=== PATIENT | female | born 2000 | race Caucasian/White ===

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

== ENCOUNTER → 2021-05-03 | Outpatient (REF) | LOC: M LABSMTC 13:05 | PROVIDERS: ATTEND Pediatrics | DX: Z20.822 Contact with and (suspected) exposure to COVID-19 (principal) ==

== ENCOUNTER 2022-11-13 18:53 | Emergency (ER) | payer OTHER ==
[~2022-11-13] VITALS: Ht 165.1 cm; Wt 59.0 kg
[2022-11-13 19:49] LABS: HEMATOCRIT 42.9 % (36.0-47.0); HEMOGLOBIN 14.4 g/dl (12.0-15.5); MEAN CORPUSCULAR HEMOGLOBIN 31.5 pg (27.0-33.0); MEAN CORPUSCULAR HGB CONC 33.6 g/dl (32.0-36.5); MEAN CORPUSCULAR VOLUME 93.9 fl (80.0-96.0); PLATELET COUNT, AUTOMATED 213 10^3/uL (150-450); RED BLOOD COUNT 4.57 10^6/uL (4.00-5.40); WHITE BLOOD COUNT 5.3 10^3/uL (4.0-10.0)
[2022-11-13 20:11] LABS: RSV AMPLIFICATION NEGATIVE (NEGATIVE)
[2022-11-13 20:18] LABS: ATYPICAL LYMPH 1 % (0-5); BASOPHILS 1 % (0-1); LYMPHOCYTES 15 % (16-44); MONOCYTES 14 % (0-5); NEUTROPHILS 68 % (28-66)
[2022-11-13 20:19] LABS: PLATELET ESTIMATE NORMAL (NORMAL)
[2022-11-13 20:21] LABS: ALBUMIN 4.3 G/DL (3.2-5.2); ALKALINE PHOSPHATASE 72 U/L (46-116); ALT/SGPT 18 U/L (7.0-40); AST/SGOT 13 U/L (<34); BLOOD UREA NITROGEN 10 MG/DL (9-23); CALCIUM LEVEL 9.1 MG/DL (8.5-10.1); CARBON DIOXIDE LEVEL 23 MMOL/L (20-31); CHLORIDE LEVEL 103 MMOL/L (98-107); CREATININE FOR GFR 0.71 MG/DL (0.55-1.30); GLOMERULAR FILTRATION RATE > 60.0 (>60); GLUCOSE, FASTING 82 MG/DL (60-100); POTASSIUM SERUM 4.1 MMOL/L (3.5-5.1); SODIUM LEVEL 136 MMOL/L (136-145); TOTAL PROTEIN 7.6 G/DL (5.7-8.2)
[2022-11-13 20:26] LABS: HCG, SERUM QUALITATIVE NEGATIVE (NEGATIVE)
[2022-11-14 00:34] VITALS: BP 126/79; TEMP 100.8; O2SAT 98
[2022-11-14 03:02] LABS: MONO SCRN NEGATIVE (NEGATIVE)
[2022-11-14] MEDS ORDERED: CEPHALEXIN 500 MG CAP PO ONE (05:30)
[2022-11-14] MEDS ORDERED: CEPH500C PO (05:34)
[2022-11-14 06:41] LABS: GC DNA AMPLIFICATION NEGATIVE (NEGATIVE)
== END 2022-11-14 05:47 | disposition home or self-care (01) ==
LOC: M ED 18:53
DX: B00.89 Other herpesviral infection (principal); N89.9 Noninflammatory disorder of vagina, unspecified; J02.0 Streptococcal pharyngitis

== ENCOUNTER → 2023-06-03 | Outpatient (REF) | payer OTHER ==
[~2023-06-03] MED LIST: CEPH500C PO; VALA1TAB5 PO
== END ==
LOC: M SFHCWAGY 17:21
PROVIDERS: ATTEND Nurse Practitioner Family
DX: Z12.4 Encounter for screening for malignant neoplasm of cervix (principal)

== ENCOUNTER → 2024-06-09 | Outpatient (CLI) | payer OTHER, BC ==
[2024-06-09 19:04] LABS: HEPATITIS B SURFACE ANTIGEN NEGATIVE (NEGATIVE)
[2024-06-09 19:17] LABS: HIV 1&2 SCREEN NEGATIVE (NEGATIVE)
[2024-06-09 19:25] LABS: HEPATITIS C VIRUS ABY INDEX 0.15 INDEX (<0.8)
[2024-06-09 19:26] LABS: HEPATITIS B CORE ANTIBODY IGM NEGATIVE (NEGATIVE)
[2024-06-09 20:32] LABS: Trichomonas vaginalis (AMP) NOT DETECTED (NEGATIVE)
[2024-06-09 20:56] LABS: GC DNA AMPLIFICATION NEGATIVE (NEGATIVE)
== END ==
LOC: M PLALAB 15:24
PROVIDERS: ATTEND Nurse Practitioner Family
DX: Z11.3 Encounter for screening for infections with a predominantly sexual mode of transmission (principal)

== ENCOUNTER → 2024-11-17 | Outpatient (REF) | payer BC, OTHER ==
[2024-11-17 19:47] LABS: Trichomonas vaginalis (AMP) NOT DETECTED (NEGATIVE)
[2024-11-17 20:10] LABS: GC DNA AMPLIFICATION NEGATIVE (NEGATIVE)
== END ==
LOC: M SFHCWAGY 16:59
PROVIDERS: ATTEND Nurse Practitioner Family
DX: N73.9 Female pelvic inflammatory disease, unspecified (principal)